=== PATIENT | male | born 1990 | race African-American/Black ===

== ENCOUNTER 2021-06-13 10:19 | Inpatient (IN) | payer BC, SELFPAY ==
[2021-06-13] MEDS ORDERED: cloNIDine 0.1 MG TAB ONE (10:41)
[2021-06-13 11:15] LABS: #Basophils 0.1 thou/uL (0.0-0.2); #Eosinphils 0.3 thou/uL (0.0-0.7); #Lymphocytes 2.5 thou/uL (1.20-3.40); #Monocytes 0.4 thou/uL (0.11-0.59); #Neutrophils 4.9 thou/uL (1.40-6.50); %Basophils 0.8 % (0.0-1.0); %Eosinophils 3.9 % (0.0-10.0); %Lymphocytes 30.3 % (21.0-51.0); %Monocytes 4.5 % (0.0-10.0); %Neutrophils 60.6 % (42.0-75.0); Hemoglobin 14.8 g/dL (14.0-18.0); Mean Corpuscular HGB CONC 31.6 g/dL (32.0-36.0); Mean Corpuscular Hemoglobin 27.7 pg (27.0-31.0); Mean Corpuscular Volume 87.9 fL (78.0-98.0); Mean Platelet Volume 8.7 fL (7.4-10.4); Platelet Count 264 thou/uL (130-400); RBC Distribution Width 12.3 % (11.5-14.5); White Blood Cell (WBC) Count 8.2 thou/uL (4.8-10.8)
[2021-06-13 11:22] LABS: Red Blood Cell (RBC) Count 5.34 mill/uL (4.70-6.10)
[2021-06-13 11:55] LABS: CKMB 2.2 ng/mL (0-6.6)
[2021-06-13] MEDS ORDERED: Aspirin 325 MG TAB ONE (12:13)
[2021-06-13] MEDS ORDERED: Acetaminophen 325 MG TAB ONE (12:13)
[2021-06-13] MEDS ORDERED: Nitroglycerin 2% Ointment 1 INCH/1 GM Packet ONE (12:13)
[2021-06-13 14:22] LABS: ALT (SGPT) 25 U/L (8-55); AST (SGOT) 23 U/L (5-34); Albumin 4.1 g/dL (3.5-5.0); Alkaline Phosphatase 50 U/L (40-110); Anion Gap 15 mmol/L (10-20); BUN (Urea Nitrogen) 17 mg/dL (8.9-20.6); Bilirubin, Total 0.6 mg/dL (0.2-1.2); Calc. Creatinine Clearance 0 mL/min (70-130); Calcium 9.6 mg/dL (7.8-10.44); Carbon Dioxide 22 mmol/L (22-29); Chloride 106 mmol/L (98-107); Globulin 3.6 g/dL (2.4-3.5); Glucose 97 mg/dL (70-105); Potassium 3.6 mmol/L (3.5-5.1); Protein, Total 7.7 g/dL (6.0-8.3); Sodium 139 mmol/L (136-145)
[2021-06-13] MEDS ORDERED: Ondansetron PF 4 MG/2 ML Vial IVP PRN (15:41)
[2021-06-13] MEDS ORDERED: Bisacodyl 5 MG TAB PO PRN (15:41)
[2021-06-13] MEDS ORDERED: Senokot S 8.6-50 MG TAB PO PRN (15:41)
[2021-06-13] MEDS ORDERED: Bisacodyl 10 MG SUPP PR PRN (15:41)
[2021-06-13 17:07] LABS: Troponin I 0.038 ng/mL (< 0.028)
[2021-06-13 17:42] VITALS: BMI 47.5
[2021-06-13] MEDS ORDERED: Furosemide 20 MG/2 ML VIAL SLOW IVP SCH (17:45)
[2021-06-13] MEDS ORDERED: Losartan 25 MG TAB PO SCH (17:45)
[2021-06-13] MEDS ORDERED: FLU VACC QS2021-22(6MOS UP)/PF 60 MCG/0.5 ML SYRINGE IM ONE (17:45)
[2021-06-13 19:09] LABS: SARS-CoV-2 NAA Rapid Test Not Detected (NotDetected)
[2021-06-13] MEDS ORDERED: Communication Order-Pharmacy FS ONE (19:52)
[2021-06-13] MEDS: Enoxaparin Sodium 100 MG/ML SYRINGE SC SCH (21:51)
[2021-06-13] MEDS: Nitroglycerin 2% Ointment 1 INCH/1 GM Packet TOP SCH (21:52)
[2021-06-13] MEDS: Enoxaparin Sodium 80 MG/0.8 ML SYRINGE SC SCH (21:52)
[2021-06-13 22:20] LABS: Bilirubin Negative (Negative); Blood, Urine Negative (Negative); Clarity Clear (Clear); Glucose, Urine (Dipstick) Normal (Negative); Ketone, Urine Negative (Negative); Leukocyte Negative Leu/uL (Negative); Nitrite Negative (Negative); Protein, Urine (Dipstick) Negative (Neg-Trace); RBC/HPF 0-3 HPF (0-3); Specific Gravity, Urine 1.009 (1.002-1.036); Squamous Epithelial 0-3 HPF (0-3); Urobilinogen Normal mg/dL (Less than 2); pH, Urine 6.5 (5.0-9.0)
[2021-06-13 22:29] LABS: Bacteria/HPF Rare-Few HPF (None Seen)
[2021-06-13 23:08] LABS: Amphetamine Not Detected (NotDetected); Barbiturates Screen Not Detected (NotDetected); Benzodiazepine Screen Not Detected (NotDetected); Cocaine Metabolite Screen Not Detected (NotDetected); Methadone Not Detected (NotDetected); Methamphetamine Not Detected (NotDetected); Opiate Screen Not Detected (NotDetected); Oxycodone Screen Not Detected (NotDetected); Phencyclidine (PCP) Not Detected (NotDetected); THC/Cannabinoid Screen Detected (NotDetected); Tricyclic Screen Not Detected (NotDetected)
[2021-06-14 04:46] LABS: #Basophils 0.1 thou/uL (0.0-0.2); #Eosinphils 0.3 thou/uL (0.0-0.7); #Lymphocytes 3.2 thou/uL (1.20-3.40); #Monocytes 0.5 thou/uL (0.11-0.59); #Neutrophils 5.4 thou/uL (1.40-6.50); %Basophils 0.6 % (0.0-1.0); %Eosinophils 3.6 % (0.0-10.0); %Lymphocytes 34.1 % (21.0-51.0); %Monocytes 5.1 % (0.0-10.0); %Neutrophils 56.6 % (42.0-75.0); Hemoglobin 14.3 g/dL (14.0-18.0); Mean Corpuscular HGB CONC 32.5 g/dL (32.0-36.0); Mean Corpuscular Hemoglobin 28.6 pg (27.0-31.0); Mean Platelet Volume 9.1 fL (7.4-10.4); Platelet Count 245 thou/uL (130-400); RBC Distribution Width 12.3 % (11.5-14.5); White Blood Cell (WBC) Count 9.5 thou/uL (4.8-10.8)
[2021-06-14 04:50] LABS: Hemoglobin A1c 5.2 % (4.0-6.0)
[2021-06-14 04:55] LABS: Prothrombin Time 12.9 sec (12.0-14.7)
[2021-06-14 05:14] LABS: ALT (SGPT) 27 U/L (8-55); AST (SGOT) 23 U/L (5-34); Alkaline Phosphatase 50 U/L (40-110); Anion Gap 15 mmol/L (10-20); BUN (Urea Nitrogen) 18 mg/dL (8.9-20.6); Bilirubin, Total 0.7 mg/dL (0.2-1.2); Calc. Creatinine Clearance 151 mL/min (70-130); Calcium 9.9 mg/dL (7.8-10.44); Carbon Dioxide 21 mmol/L (22-29); Cardiac Risk 4.3 (Less than 4.5); Chloride 105 mmol/L (98-107); Cholesterol 165 mg/dl (< 200 Desired); Globulin 3.2 g/dL (2.4-3.5); Glucose 90 mg/dL (70-105); HDL Cholesterol 38 mg/dL (>60 Neg Risk); LDL Cholesterol, Calculated 108 mg/dL; Phosphorus 4.9 mg/dL (2.3-4.7); Potassium 3.4 mmol/L (3.5-5.1); Protein, Total 7.2 g/dL (6.0-8.3); Sodium 138 mmol/L (136-145); Triglycerides 96 mg/dL (Less than 150)
[2021-06-14] MEDS ORDERED: Furosemide 20 MG/2 ML VIAL SLOW IVP SCH (07:15)
[2021-06-14] MEDS ORDERED: Potassium Chloride 20 MEQ TAB PO SCH (07:15)
[2021-06-14] MEDS: Nitroglycerin 2% Ointment 1 INCH/1 GM Packet TOP SCH ×2 (10:43→21:13)
[2021-06-14] MEDS: Enoxaparin Sodium 100 MG/ML SYRINGE SC SCH (10:43)
[2021-06-14] MEDS: Aspirin Chewable 81 MG TAB PO SCH (10:43)
[2021-06-14] MEDS: Amlodipine 10 MG TAB PO SCH (10:44)
[2021-06-14] MEDS: Losartan 25 MG TAB PO SCH (10:45)
[2021-06-14] MEDS: Enoxaparin Sodium 80 MG/0.8 ML SYRINGE SC SCH (11:09)
[2021-06-14] MEDS ORDERED: Enoxaparin Sodium 100 MG/ML SYRINGE SC SCH (11:15)
[2021-06-14] MEDS ORDERED: Enoxaparin Sodium 80 MG/0.8 ML SYRINGE SC SCH (11:15)
[2021-06-14] MEDS ORDERED: hydrALAZINE 20 MG/ML VIAL SLOW IVP SCH (17:15)
[2021-06-14] MEDS ORDERED: hydrALAZINE 25 MG TAB PO SCH (17:15)
[2021-06-14] MEDS: hydrALAZINE 25 MG TAB PO SCH (21:13)
[2021-06-14] MEDS: Acetaminophen 325 MG TAB PO PRN (21:15)
[2021-06-15 04:22] LABS: #Eosinphils 0.2 thou/uL (0.0-0.7); #Lymphocytes 1.1 thou/uL (1.20-3.40); #Monocytes 0.3 thou/uL (0.11-0.59); #Neutrophils 3.8 thou/uL (1.40-6.50); %Basophils 0.2 % (0.0-1.0); %Eosinophils 2.9 % (0.0-10.0); %Lymphocytes 21.2 % (21.0-51.0); %Monocytes 4.7 % (0.0-10.0); %Neutrophils 71.1 % (42.0-75.0); Hemoglobin 14.8 g/dL (14.0-18.0); Mean Corpuscular HGB CONC 32.9 g/dL (32.0-36.0); Mean Corpuscular Hemoglobin 28.9 pg (27.0-31.0); Mean Platelet Volume 8.9 fL (7.4-10.4); Platelet Count 245 thou/uL (130-400); RBC Distribution Width 12.3 % (11.5-14.5); Red Blood Cell (RBC) Count 5.11 mill/uL (4.70-6.10); White Blood Cell (WBC) Count 5.4 thou/uL (4.8-10.8)
[2021-06-15] MEDS: Acetaminophen 325 MG TAB PO PRN (04:43)
[2021-06-15 05:04] LABS: Carbon Dioxide 24 mmol/L (22-29); Chloride 105 mmol/L (98-107); Potassium 3.5 mmol/L (3.5-5.1); Sodium 138 mmol/L (136-145)
[2021-06-15 05:05] LABS: ALT (SGPT) 24 U/L (8-55); AST (SGOT) 17 U/L (5-34); Albumin 4.1 g/dL (3.5-5.0); Alkaline Phosphatase 49 U/L (40-110); Anion Gap 13 mmol/L (10-20); BUN (Urea Nitrogen) 17 mg/dL (8.9-20.6); Bilirubin, Total 0.7 mg/dL (0.2-1.2); Calc. Creatinine Clearance 166 mL/min (70-130); Calcium 9.8 mg/dL (7.8-10.44); Globulin 3.2 g/dL (2.4-3.5); Glucose 91 mg/dL (70-105); Magnesium 2.2 mg/dL (1.6-2.6); Phosphorus 3.5 mg/dL (2.3-4.7); Protein, Total 7.3 g/dL (6.0-8.3)
[2021-06-15] MEDS: Aspirin Chewable 81 MG TAB PO SCH (06:12)
[2021-06-15] MEDS: hydrALAZINE 25 MG TAB PO SCH ×3 (06:12→20:31)
[2021-06-15] MEDS: Amlodipine 10 MG TAB PO SCH (06:12)
[2021-06-15] MEDS: Losartan 25 MG TAB PO SCH (06:12)
[2021-06-15] MEDS: Nitroglycerin 2% Ointment 1 INCH/1 GM Packet TOP SCH (06:13)
[2021-06-15] MEDS ORDERED: Chlorthalidone 25 MG TAB PO SCH (09:00)
[2021-06-15] MEDS ORDERED: Iopamidol 370 76% 100 ML VIAL ONE (11:33)
[2021-06-15] MEDS ORDERED: Lidocaine 1% (PF) 30 ML VIAL ONE (12:32)
[2021-06-15] MEDS ORDERED: Midazolam HCl 2 mg/2 ml Vial ONE (13:28)
[2021-06-15] MEDS ORDERED: Fentanyl 100 MCG/2 ML VIAL ONE (13:29)
[2021-06-15] MEDS ORDERED: hydrALAZINE 20 MG/ML VIAL ONE (13:55)
[2021-06-15] MEDS ORDERED: Acetaminophen/Codeine 30-300mg Tablet PO PRN (14:28)
[2021-06-15] MEDS ORDERED: Sodium Chloride 0.9% 200 ML IV PRN (14:28)
[2021-06-15] MEDS ORDERED: Nitroglycerin 0.4 MG TAB (25 Tab Bottle) SL PRN (14:28)
[2021-06-15] MEDS ORDERED: Sodium Chloride 0.9% 250 ML IV SCH (14:30)
[2021-06-15] MEDS: Carvedilol 6.25 MG TAB PO SCH (17:26)
[2021-06-15] MEDS: Sacubitril 49 MG/Valsartan 51 MG TABLET PO SCH (20:31)
[2021-06-16 05:51] LABS: #Basophils 0.1 thou/uL (0.0-0.2); #Eosinphils 0.6 thou/uL (0.0-0.7); #Lymphocytes 2.9 thou/uL (1.20-3.40); #Monocytes 0.6 thou/uL (0.11-0.59); #Neutrophils 6.3 thou/uL (1.40-6.50); %Basophils 0.6 % (0.0-1.0); %Eosinophils 5.8 % (0.0-10.0); %Lymphocytes 27.6 % (21.0-51.0); %Monocytes 5.6 % (0.0-10.0); %Neutrophils 60.4 % (42.0-75.0); Hemoglobin 15.6 g/dL (14.0-18.0); Mean Corpuscular HGB CONC 31.9 g/dL (32.0-36.0); Mean Corpuscular Volume 87.5 fL (78.0-98.0); Mean Platelet Volume 8.6 fL (7.4-10.4); Platelet Count 266 thou/uL (130-400); RBC Distribution Width 12.5 % (11.5-14.5); Red Blood Cell (RBC) Count 5.58 mill/uL (4.70-6.10); White Blood Cell (WBC) Count 10.4 thou/uL (4.8-10.8)
[2021-06-16 06:01] LABS: INR-International Normal Ratio 0.9; Prothrombin Time 12.2 sec (12.0-14.7)
[2021-06-16 06:12] LABS: ALT (SGPT) 33 U/L (8-55); AST (SGOT) 26 U/L (5-34); Albumin 4.2 g/dL (3.5-5.0); Alkaline Phosphatase 53 U/L (40-110); Anion Gap 14 mmol/L (10-20); BUN (Urea Nitrogen) 15 mg/dL (8.9-20.6); Bilirubin, Total 0.6 mg/dL (0.2-1.2); Calc. Creatinine Clearance 164 mL/min (70-130); Calcium 9.9 mg/dL (7.8-10.44); Carbon Dioxide 22 mmol/L (22-29); Chloride 105 mmol/L (98-107); Globulin 3.3 g/dL (2.4-3.5); Glucose 102 mg/dL (70-105); Magnesium 2.3 mg/dL (1.6-2.6); Phosphorus 4.2 mg/dL (2.3-4.7); Potassium 3.5 mmol/L (3.5-5.1); Protein, Total 7.5 g/dL (6.0-8.3); Sodium 137 mmol/L (136-145)
[2021-06-16] MEDS: Aspirin Chewable 81 MG TAB PO SCH (08:10)
[2021-06-16] MEDS: Sacubitril 49 MG/Valsartan 51 MG TABLET PO SCH ×2 (08:10→20:15)
[2021-06-16] MEDS: Amlodipine 10 MG TAB PO SCH (08:11)
[2021-06-16] MEDS: Spironolactone 25 MG TAB PO SCH (08:11)
[2021-06-16] MEDS: hydrALAZINE 25 MG TAB PO SCH ×3 (08:12→20:15)
[2021-06-16] MEDS: Carvedilol 6.25 MG TAB PO SCH ×2 (08:13→17:13)
[2021-06-17 05:14] LABS: #Eosinphils 0.5 thou/uL (0.0-0.7); #Lymphocytes 2.2 thou/uL (1.20-3.40); #Monocytes 0.5 thou/uL (0.11-0.59); #Neutrophils 4.7 thou/uL (1.40-6.50); %Basophils 0.3 % (0.0-1.0); %Eosinophils 6.3 % (0.0-10.0); %Lymphocytes 27.6 % (21.0-51.0); %Monocytes 5.9 % (0.0-10.0); %Neutrophils 59.9 % (42.0-75.0); Hemoglobin 15.3 g/dL (14.0-18.0); Mean Corpuscular HGB CONC 31.1 g/dL (32.0-36.0); Mean Corpuscular Hemoglobin 27.7 pg (27.0-31.0); Platelet Count 256 thou/uL (130-400); RBC Distribution Width 12.5 % (11.5-14.5); Red Blood Cell (RBC) Count 5.52 mill/uL (4.70-6.10); White Blood Cell (WBC) Count 7.9 thou/uL (4.8-10.8)
[2021-06-17 05:26] LABS: ALT (SGPT) 53 U/L (8-55); AST (SGOT) 38 U/L (5-34); Albumin 4.1 g/dL (3.5-5.0); Alkaline Phosphatase 49 U/L (40-110); Anion Gap 13 mmol/L (10-20); BUN (Urea Nitrogen) 15 mg/dL (8.9-20.6); Bilirubin, Total 0.9 mg/dL (0.2-1.2); Calc. Creatinine Clearance 161 mL/min (70-130); Calcium 9.8 mg/dL (7.8-10.44); Carbon Dioxide 23 mmol/L (22-29); Chloride 104 mmol/L (98-107); Globulin 3.2 g/dL (2.4-3.5); Glucose 97 mg/dL (70-105); Magnesium 2.1 mg/dL (1.6-2.6); Phosphorus 4.2 mg/dL (2.3-4.7); Potassium 3.4 mmol/L (3.5-5.1); Protein, Total 7.3 g/dL (6.0-8.3); Sodium 137 mmol/L (136-145)
[2021-06-17] MEDS: Carvedilol 6.25 MG TAB PO SCH ×2 (10:01→17:23)
[2021-06-17] MEDS: Spironolactone 25 MG TAB PO SCH (10:01)
[2021-06-17] MEDS: Sacubitril 49 MG/Valsartan 51 MG TABLET PO SCH ×2 (10:02→21:32)
[2021-06-17] MEDS: hydrALAZINE 25 MG TAB PO SCH ×3 (10:02→21:32)
[2021-06-17] MEDS: Amlodipine 10 MG TAB PO SCH (10:02)
[2021-06-17] MEDS: Aspirin Chewable 81 MG TAB PO SCH (10:03)
[2021-06-18 05:25] LABS: #Basophils 0.1 thou/uL (0.0-0.2); #Eosinphils 0.4 thou/uL (0.0-0.7); #Monocytes 0.6 thou/uL (0.11-0.59); #Neutrophils 5.8 thou/uL (1.40-6.50); %Basophils 0.7 % (0.0-1.0); %Eosinophils 4.5 % (0.0-10.0); %Lymphocytes 30.4 % (21.0-51.0); %Neutrophils 58.4 % (42.0-75.0); Mean Corpuscular HGB CONC 32.9 g/dL (32.0-36.0); Mean Corpuscular Hemoglobin 28.8 pg (27.0-31.0); Mean Corpuscular Volume 87.7 fL (78.0-98.0); Mean Platelet Volume 9.1 fL (7.4-10.4); Platelet Count 244 thou/uL (130-400); RBC Distribution Width 12.3 % (11.5-14.5); Red Blood Cell (RBC) Count 5.21 mill/uL (4.70-6.10); White Blood Cell (WBC) Count 9.9 thou/uL (4.8-10.8)
[2021-06-18 05:35] LABS: Prothrombin Time 13.1 sec (12.0-14.7)
[2021-06-18 06:39] LABS: Chloride 105 mmol/L (98-107); Potassium 3.6 mmol/L (3.5-5.1); Sodium 138 mmol/L (136-145)
[2021-06-18 06:41] LABS: Globulin 3.1 g/dL (2.4-3.5); Glucose 92 mg/dL (70-105); Protein, Total 7.1 g/dL (6.0-8.3)
[2021-06-18 06:42] LABS: Anion Gap 16 mmol/L (10-20); Bilirubin, Total 0.8 mg/dL (0.2-1.2); Carbon Dioxide 21 mmol/L (22-29)
[2021-06-18 06:44] LABS: Alkaline Phosphatase 44 U/L (40-110); Calc. Creatinine Clearance 148 mL/min (70-130); Phosphorus 4.1 mg/dL (2.3-4.7)
[2021-06-18 06:45] LABS: BUN (Urea Nitrogen) 21 mg/dL (8.9-20.6)
[2021-06-18 06:46] LABS: AST (SGOT) 25 U/L (5-34); Magnesium 2.2 mg/dL (1.6-2.6)
[2021-06-18 06:47] LABS: ALT (SGPT) 44 U/L (8-55)
[2021-06-18] MEDS: Spironolactone 25 MG TAB PO SCH (09:10)
[2021-06-18] MEDS: hydrALAZINE 25 MG TAB PO SCH ×3 (09:10→21:44)
[2021-06-18] MEDS: Aspirin Chewable 81 MG TAB PO SCH (09:10)
[2021-06-18] MEDS: Carvedilol 6.25 MG TAB PO SCH ×2 (09:10→16:27)
[2021-06-18] MEDS: Sacubitril 49 MG/Valsartan 51 MG TABLET PO SCH ×2 (09:10→21:44)
[2021-06-18] MEDS: Amlodipine 10 MG TAB PO SCH (09:10)
[2021-06-19 05:05] LABS: #Basophils 0.1 thou/uL (0.0-0.2); #Eosinphils 0.4 thou/uL (0.0-0.7); #Lymphocytes 2.7 thou/uL (1.20-3.40); #Monocytes 0.5 thou/uL (0.11-0.59); #Neutrophils 3.5 thou/uL (1.40-6.50); %Basophils 1.3 % (0.0-1.0); %Eosinophils 5.5 % (0.0-10.0); %Lymphocytes 37.2 % (21.0-51.0); %Monocytes 6.9 % (0.0-10.0); Hemoglobin 14.3 g/dL (14.0-18.0); Mean Corpuscular HGB CONC 33.2 g/dL (32.0-36.0); Mean Corpuscular Hemoglobin 29.3 pg (27.0-31.0); Mean Corpuscular Volume 88.2 fL (78.0-98.0); Mean Platelet Volume 8.6 fL (7.4-10.4); Platelet Count 238 thou/uL (130-400); RBC Distribution Width 12.3 % (11.5-14.5); Red Blood Cell (RBC) Count 4.89 mill/uL (4.70-6.10); White Blood Cell (WBC) Count 7.1 thou/uL (4.8-10.8)
[2021-06-19 05:07] LABS: INR-International Normal Ratio 0.9; Prothrombin Time 12.4 sec (12.0-14.7)
[2021-06-19 05:28] LABS: ALT (SGPT) 37 U/L (8-55); AST (SGOT) 22 U/L (5-34); Albumin 3.8 g/dL (3.5-5.0); Alkaline Phosphatase 42 U/L (40-110); Anion Gap 13 mmol/L (10-20); BUN (Urea Nitrogen) 22 mg/dL (8.9-20.6); Bilirubin, Total 0.7 mg/dL (0.2-1.2); Calc. Creatinine Clearance 158 mL/min (70-130); Calcium 9.7 mg/dL (7.8-10.44); Carbon Dioxide 25 mmol/L (22-29); Chloride 104 mmol/L (98-107); Globulin 2.9 g/dL (2.4-3.5); Glucose 92 mg/dL (70-105); Magnesium 2.1 mg/dL (1.6-2.6); Phosphorus 4.9 mg/dL (2.3-4.7); Potassium 3.5 mmol/L (3.5-5.1); Protein, Total 6.7 g/dL (6.0-8.3); Sodium 138 mmol/L (136-145)
[2021-06-19] MEDS: Carvedilol 6.25 MG TAB PO SCH ×2 (10:18→17:46)
[2021-06-19] MEDS: Spironolactone 25 MG TAB PO SCH (10:19)
[2021-06-19] MEDS: Amlodipine 10 MG TAB PO SCH (10:19)
[2021-06-19] MEDS: Aspirin Chewable 81 MG TAB PO SCH (10:20)
[2021-06-19] MEDS: hydrALAZINE 25 MG TAB PO SCH ×2 (10:20→15:58)
[2021-06-19] MEDS: Sacubitril 49 MG/Valsartan 51 MG TABLET PO SCH (10:21)
[2021-06-19 15:15] VITALS: TEMP 98
[2021-06-19 18:05] VITALS: BP 150/83
== END 2021-06-19 18:20 | disposition home or self-care (01) | DRG 286 ==
LOC: SUATTDRO 10:19 → ERS 10:19 → EEVIPCON 15:10 → 2NO 15:10
PROVIDERS: ADMIT Family Medicine; ATTEND Hospitalist
PROC: B2111ZZ Fluoroscopy of Multiple Coronary Arteries using Low Osmolar Contrast (ICD-10-PCS; principal; 2021-06-15)
DX: I11.0 Hypertensive heart disease with heart failure (principal); I50.23 Acute on chronic systolic (congestive) heart failure; Z68.42 Body mass index [BMI] 45.0-49.9, adult; N17.9 Acute kidney failure, unspecified; I16.1 Hypertensive emergency; I24.8 Other forms of acute ischemic heart disease; E66.01 Morbid (severe) obesity due to excess calories; F12.10 Cannabis abuse, uncomplicated; F17.210 Nicotine dependence, cigarettes, uncomplicated; Z20.822 Contact with and (suspected) exposure to COVID-19; I42.0 Dilated cardiomyopathy; I35.1 Nonrheumatic aortic (valve) insufficiency; I71.2 Thoracic aortic aneurysm, without rupture; I25.10 Atherosclerotic heart disease of native coronary artery without angina pectoris; Z79.899 Other long term (current) drug therapy; Z91.14 Patient's other noncompliance with medication regimen; Z90.09 Acquired absence of other part of head and neck
CPT/HCPCS: 0240U; 36415; 71045; 71275; 74174; 76770; 78472; 80053; 80061; 80306; 81001; 82550; 82553; 83036; 83735; 83880; 84100; 84443; 84484; 85025; 85610; 86850; 86900; 86901; 93005; 93306; 93454; 93798; 93975; 97139; 99152; 99153; A9604; J0360; J1650; J1940; J2001; J2250; J3010; J7030; Q9967